=== PATIENT | female | born 1950 | race Caucasian/White ===

== ENCOUNTER → 2016-11-19 | Outpatient (CLI) | payer BC ==
[~2016-11-19] MED LIST: COZAAR100 MG PO; DESYREL 100MG100 MG PO; LAMICTAL25 MG PO; LOSARTAN POTASS25 MG PO; PERCOCET 325 MG1 TA2 PO; PRISTIQ 50 MG T50 MG PO; TRAZODONE50 MG PO; WELLBUTRIN SR150 M2 PO; WELLBUTRIN75 MG PO
== END ==
LOC: RAD 08:29
DX: R27.0 Ataxia, unspecified (principal)
CPT/HCPCS: A9579

== ENCOUNTER 2017-02-04 15:41 | Outpatient (RCR) | payer BC ==
[2016-04-04 23:10] VITALS: BP 158/76
== END 2017-03-13 15:00 | disposition home or self-care (01) ==
LOC: PT 15:41
DX: M25.572 Pain in left ankle and joints of left foot (principal)

== ENCOUNTER → 2017-04-09 | Outpatient (CLI) | payer BC ==
[2016-04-04 23:10] VITALS: BP 158/76
== END ==
LOC: RAD 16:39
DX: M25.552 Pain in left hip (principal); M25.551 Pain in right hip

== ENCOUNTER → 2017-09-03 | Outpatient (CLI) | payer BC ==
[2016-04-04 23:10] VITALS: BP 158/76
== END ==
LOC: MAMMO 09-02 13:02
DX: N63.11 Unspecified lump in the right breast, upper outer quadrant (principal)

== ENCOUNTER → 2018-03-25 | Outpatient (CLI) | payer MEDICARE, BC ==
[2016-04-04 23:10] VITALS: BP 158/76
== END ==
LOC: MAMMO 03-04 12:56
DX: N63.41 Unspecified lump in right breast, subareolar (principal)

== ENCOUNTER → 2018-11-02 | Outpatient (CLI) | payer MEDICARE, BC ==
[2016-04-04 23:10] VITALS: BP 158/76
== END ==
LOC: RAD 09:23
DX: I51.7 Cardiomegaly (principal); R05 Cough
CPT/HCPCS: Q9967

== ENCOUNTER → 2018-11-29 | Outpatient (CLI) | payer MEDICARE, BC ==
[2016-04-04 23:10] VITALS: BP 158/76
== END ==
LOC: VAS 11:15
DX: I51.89 Other ill-defined heart diseases (principal); I51.7 Cardiomegaly

== ENCOUNTER → 2018-12-09 | Outpatient (CLI) | payer MEDICARE, BC ==
[2016-04-04 23:10] VITALS: BP 158/76
== END ==
LOC: MAMMO 12:57
DX: N60.11 Diffuse cystic mastopathy of right breast (principal)

== ENCOUNTER 2019-05-24 21:01 | Emergency (ER) | payer MEDICARE, BC ==
[~2019-05-24 21:01] MED LIST changes: +AMLODIPINE BESYL5 MG PO; +OMEPRAZOLE40 MG PO; +SERTRALINE HYD100 MG PO
[2019-05-24] MEDS ORDERED: WELLBUTRIN XL150 M2 PO (21:15)
[2019-05-24] MEDS ORDERED: CARVEDILOL12.5 MG PO (21:16)
[2019-05-24] MEDS ORDERED: ATORVASTATIN CA80 MG PO (21:16)
[2019-05-24] MEDS ORDERED: ACETAMINOPHEN-O1 TAB PO (21:16)
[2019-05-24] MEDS ORDERED: GABAPENTIN100 MG PO (21:17)
[2019-05-24] MEDS ORDERED: SINGULAIR 110 MG/TAB PO (21:17)
[2019-05-24] MEDS ORDERED: NITROGLYCERIN0.4 M1 SL (21:17)
[2019-05-24] MEDS ORDERED: ASPIRIN E.C. 8181 MG PO (21:18)
[2019-05-24 22:11] VITALS: BP 150/82
== END 2019-05-24 22:16 | disposition home or self-care (01) ==
LOC: ED 21:01
DX: S52.502A Unspecified fracture of the lower end of left radius, initial encounter for closed fracture (principal); S52.602A Unspecified fracture of lower end of left ulna, initial encounter for closed fracture; S42.412A Displaced simple supracondylar fracture without intercondylar fracture of left humerus, initial encounter for closed fracture; H57.11 Ocular pain, right eye; F41.9 Anxiety disorder, unspecified; I25.10 Atherosclerotic heart disease of native coronary artery without angina pectoris; F32.9 Major depressive disorder, single episode, unspecified; Z95.5 Presence of coronary angioplasty implant and graft; Z77.098 Contact with and (suspected) exposure to other hazardous, chiefly nonmedicinal, chemicals; W09.8XXA Fall on or from other playground equipment, initial encounter; Y92.830 Public park as the place of occurrence of the external cause

== ENCOUNTER 2019-06-22 16:00 | Outpatient (RCR) | payer MEDICARE, BC ==
[2019-03-14 11:00] VITALS: BP 180/89
[~2019-06-22 16:00] MED LIST changes: +ACETAMINOPHEN-O1 TAB PO; +ASPIRIN E.C. 8181 MG PO; +ATORVASTATIN CA80 MG PO; +CARVEDILOL12.5 MG PO; +GABAPENTIN100 MG PO; +NITROGLYCERIN0.4 M1 SL; +SINGULAIR 110 MG/TAB PO; +WELLBUTRIN XL150 M2 PO
== END 2019-06-28 | disposition home or self-care (01) ==
LOC: CARDREHAB
DX: Z48.812 Encounter for surgical aftercare following surgery on the circulatory system (principal); Z95.1 Presence of aortocoronary bypass graft

== ENCOUNTER 2019-07-04 16:00 | Outpatient (RCR) | payer MEDICARE, BC ==
[2019-09-12] MEDS ORDERED: DULOXETINE60 MG PO (16:27)
[2019-09-12] MEDS ORDERED: CLOPIDOGREL75 M2 PO (16:27)
== END 2019-10-02 | disposition home or self-care (01) ==
LOC: CARDREHAB
DX: Z48.812 Encounter for surgical aftercare following surgery on the circulatory system (principal); Z95.5 Presence of coronary angioplasty implant and graft

== ENCOUNTER 2019-09-12 16:19 | Emergency (ER) | payer OTHER ==
[2019-09-12] MEDS ORDERED: DULOXETINE60 MG PO (16:27)
[2019-09-12] MEDS ORDERED: CLOPIDOGREL75 M2 PO (16:27)
[2019-09-12 16:54] VITALS: BP 144/91
== END 2019-09-12 16:53 | disposition home or self-care (01) ==
LOC: ED 16:19
DX: S01.81XA Laceration without foreign body of other part of head, initial encounter (principal); I10 Essential (primary) hypertension; Z95.5 Presence of coronary angioplasty implant and graft; Z79.82 Long term (current) use of aspirin; Z79.02 Long term (current) use of antithrombotics/antiplatelets; W20.8XXA Other cause of strike by thrown, projected or falling object, initial encounter; Y92.69 Other specified industrial and construction area as the place of occurrence of the external cause; Y99.0 Civilian activity done for income or pay

== ENCOUNTER 2019-10-30 18:06 | Emergency (ER) | payer MEDICARE, BC ==
[~2019-10-30] VITALS: Ht 165.1 cm; Wt 113.6 kg
[~2019-10-30 18:06] MED LIST changes: +CLOPIDOGREL75 M2 PO; +DULOXETINE60 MG PO
[2019-10-30 18:51] VITALS: BP 135/68
== END 2019-10-30 18:50 | disposition home or self-care (01) ==
LOC: ED 18:06
DX: S61.011A Laceration without foreign body of right thumb without damage to nail, initial encounter (principal); I25.10 Atherosclerotic heart disease of native coronary artery without angina pectoris; I10 Essential (primary) hypertension; Z23 Encounter for immunization; Z79.02 Long term (current) use of antithrombotics/antiplatelets; Z88.1 Allergy status to other antibiotic agents; W45.8XXA Other foreign body or object entering through skin, initial encounter; Y92.009 Unspecified place in unspecified non-institutional (private) residence as the place of occurrence of the external cause
CPT/HCPCS: 90715

== ENCOUNTER 2019-11-19 09:46 | Emergency (ER) | payer MEDICARE, BC ==
[2019-11-19] MEDS ORDERED: FLUOXETINE40 MG PO (10:05)
[2019-11-19 10:31] LABS: EOS # 0.2 (0.04-0.40); EOS % 3.2 % (1.0-5.0); HEMOGLOBIN 12.2 g/dL (12.5-16.0); LYMPH# 1.3 (1.50-4.00); MEAN CELL VOLUME 91 fl (78-100); MEAN CORPUSCULAR HEMOGLOBIN 28 pg (27-31); MEAN CORPUSCULAR HGB CONC 31 g/dL (33-37); MEAN PLATELET VOLUME 9.4 fl (7.4-10.4); MONO # 0.4 (0.20-0.80); PLATELET COUNT 183 K/mm3 (130-400); RED BLOOD COUNT 4.31 M/mm3 (4.10-5.30); RED CELL DISTRIBUTION WIDTH 14.6 % (11.5-14.5); WHITE BLOOD COUNT 5.9 K/mm3 (4.8-10.8)
[2019-11-19 10:59] LABS: D-DIMER 0.89 mg/L FEU (0.15-0.50)
[2019-11-19 11:00] LABS: ALBUMIN 3.6 g/dL (3.4-4.8); POTASSIUM 3.9 mmol/L (3.5-5.1)
[2019-11-19 11:01] LABS: CALCIUM 8.9 mg/dL (8.3-10.5)
[2019-11-19 11:03] LABS: TOTAL PROTEIN 6.6 g/dL (6.2-8.1)
[2019-11-19 11:04] LABS: TOTAL BILIRUBIN 0.5 mg/dL (0.2-1.2)
[2019-11-19 15:20] VITALS: BP 173/92
== END 2019-11-19 15:40 | disposition short-term general hospital (02) ==
LOC: ED 09:46
PROVIDERS: Family Medicine
DX: I20.0 Unstable angina (principal); I25.2 Old myocardial infarction; I10 Essential (primary) hypertension; E78.5 Hyperlipidemia, unspecified; K21.9 Gastro-esophageal reflux disease without esophagitis; Z79.02 Long term (current) use of antithrombotics/antiplatelets; Z79.82 Long term (current) use of aspirin; Z95.5 Presence of coronary angioplasty implant and graft
CPT/HCPCS: J1644; J2270

== ENCOUNTER 2020-03-20 10:29 | Emergency (ER) | payer MEDICARE, BC ==
[~2020-03-20] VITALS: Ht 165.1 cm; Wt 113.6 kg
[~2020-03-20 10:29] MED LIST changes: +PROZAC20 M1 PO
[2020-03-20 11:00] LABS: EOS # 0.2 (0.04-0.40); EOS % 4.1 % (1.0-5.0); HEMATOCRIT 38.7 % (37.0-47.0); HEMOGLOBIN 11.9 g/dL (12.5-16.0); LYMPH# 1.4 (1.50-4.00); MEAN CELL VOLUME 92 fl (78-100); MEAN CORPUSCULAR HEMOGLOBIN 28 pg (27-31); MEAN CORPUSCULAR HGB CONC 31 g/dL (33-37); MEAN PLATELET VOLUME 9.2 fl (7.4-10.4); MONO # 0.5 (0.20-0.80); NEU # 3.5 (1.40-6.50); PLATELET COUNT 173 K/mm3 (130-400); RED BLOOD COUNT 4.22 M/mm3 (4.10-5.30); RED CELL DISTRIBUTION WIDTH 15.1 % (11.5-14.5); WHITE BLOOD COUNT 5.6 K/mm3 (4.8-10.8)
[2020-03-20] MEDS ORDERED: PROAIR HFA0.09 MG/AC IH (11:09)
[2020-03-20 11:12] LABS: ALBUMIN 3.6 g/dL (3.4-4.8); POTASSIUM 4.2 mmol/L (3.5-5.1); SODIUM 143 mmol/L (136-145)
[2020-03-20] MEDS ORDERED: ZYRTEC10 M3 PO (11:12)
[2020-03-20] MEDS ORDERED: DESMOPRESSIN0.2 MG PO (11:13)
[2020-03-20 11:14] LABS: CALCIUM 8.9 mg/dL (8.3-10.5)
[2020-03-20] MEDS ORDERED: ISOSORBIDE30 MG PO (11:14)
[2020-03-20 11:15] LABS: GLUCOSE 107 mg/dL (65-105); TOTAL PROTEIN 6.5 g/dL (6.2-8.1)
[2020-03-20] MEDS ORDERED: ATIVAN1 M1 PO (11:15)
[2020-03-20 11:16] LABS: CARBON DIOXIDE 24 mmol/L (23-31)
[2020-03-20] MEDS ORDERED: PANTOPRAZOLE SO40 MG PO (11:17)
[2020-03-20] MEDS ORDERED: SYSTANE 0.3-0.415 ML OP (11:18)
[2020-03-20] MEDS ORDERED: SPIRIVA RESPIMAT4 GM IH (11:19)
[2020-03-20 11:20] LABS: AST-SGOT 32 U/L (5-34)
[2020-03-20] MEDS ORDERED: VALTREX 50500 MG/TAB PO (11:20)
[2020-03-20 11:21] LABS: ALT/SGPT 59 U/L (0-55)
[2020-03-20 11:27] LABS: CKMB ISOENZYME 1.2 ng/mL (0.0-3.5)
[2020-03-20 11:29] LABS: TROPONIN-I < 0.03 ng/mL (<0.030)
[2020-03-20 11:40] LABS: TOTAL BILIRUBIN 0.3 mg/dL (0.2-1.2)
[2020-03-20 15:29] VITALS: BP 134/75
== END 2020-03-20 15:30 | disposition home or self-care (01) ==
LOC: ED 10:29
PROVIDERS: Nurse Practitioner Family
DX: I25.10 Atherosclerotic heart disease of native coronary artery without angina pectoris (principal); K21.0 Gastro-esophageal reflux disease with esophagitis; I10 Essential (primary) hypertension; F41.9 Anxiety disorder, unspecified; F32.9 Major depressive disorder, single episode, unspecified; Z95.5 Presence of coronary angioplasty implant and graft; Z88.2 Allergy status to sulfonamides; Z98.51 Tubal ligation status; Z79.82 Long term (current) use of aspirin
CPT/HCPCS: J7030

== ENCOUNTER → 2020-04-11 | Outpatient (CLI) | payer MEDICARE, BC ==
[2020-03-20 15:29] VITALS: BP 134/75
[~2020-04-11] MED LIST changes: +ATIVAN1 M1 PO; +DESMOPRESSIN0.2 MG PO; +ISOSORBIDE30 MG PO; +PANTOPRAZOLE SO40 MG PO; +PROAIR HFA0.09 MG/AC IH; +SPIRIVA RESPIMAT4 GM IH; +SYSTANE 0.3-0.415 ML OP; +VALTREX 50500 MG/TAB PO; +ZYRTEC10 M3 PO
== END ==
LOC: MAMMO 09:59
DX: Z12.31 Encounter for screening mammogram for malignant neoplasm of breast (principal)

== ENCOUNTER → 2020-04-11 | Outpatient (CLI) | payer MEDICARE, BC ==
[2020-03-20 15:29] VITALS: BP 134/75
== END ==
LOC: RAD 09:56 → MAMMO 10:45
DX: M81.0 Age-related osteoporosis without current pathological fracture (principal); Z78.0 Asymptomatic menopausal state

== ENCOUNTER → 2020-08-23 | Outpatient (CLI) | payer MEDICARE, BC | LOC: VAS 16:16 → RAD 16:30 | DX: I07.1 Rheumatic tricuspid insufficiency (principal) ==

== ENCOUNTER 2020-08-25 21:09 | Emergency (ER) | payer MEDICARE, BC ==
[2020-08-25 22:31] LABS: EOS # 0.2 (0.04-0.40); EOS % 3.7 % (1.0-5.0); HEMATOCRIT 42.1 % (37.0-47.0); HEMOGLOBIN 13.1 g/dL (12.5-16.0); LYMPH# 1.9 (1.50-4.00); MEAN CELL VOLUME 92 fl (78-100); MEAN CORPUSCULAR HEMOGLOBIN 29 pg (27-31); MEAN CORPUSCULAR HGB CONC 31 g/dL (33-37); MEAN PLATELET VOLUME 9.4 fl (7.4-10.4); MONO # 0.6 (0.20-0.80); NEU # 3.7 (1.40-6.50); PLATELET COUNT 176 K/mm3 (130-400); RED BLOOD COUNT 4.59 M/mm3 (4.10-5.30); WHITE BLOOD COUNT 6.5 K/mm3 (4.8-10.8)
[2020-08-25 22:37] LABS: URINE APPEARANCE CLEAR; URINE COLOR YELLOW
[2020-08-25 22:38] LABS: URINE BILIRUBIN NEGATIVE (NEGATIVE); URINE BLOOD TRACE (NEGATIVE); URINE GLUCOSE NEGATIVE (NEGATIVE); URINE KETONE NEGATIVE (NEGATIVE); URINE LEUKOCYTE ESTERASE NEGATIVE (NEGATIVE); URINE MUCUS PRESENT (NOT PRESENT); URINE NITRATE NEGATIVE (NEGATIVE); URINE PROTEIN(semi-quant) TRACE mg/dL (NEGATIVE); URINE UROBILINOGEN NORMAL (NORMAL)
[2020-08-25 22:39] LABS: ALBUMIN 3.7 g/dL (3.4-4.8); POTASSIUM 3.9 mmol/L (3.5-5.1); SODIUM 142 mmol/L (136-145)
[2020-08-25 22:41] LABS: CALCIUM 8.8 mg/dL (8.3-10.5)
[2020-08-25 22:42] LABS: GLUCOSE 118 mg/dL (65-105)
[2020-08-25 22:43] LABS: CARBON DIOXIDE 25 mmol/L (23-31)
[2020-08-25 22:44] LABS: TOTAL BILIRUBIN 0.2 mg/dL (0.2-1.2)
[2020-08-25 22:47] LABS: AST-SGOT 64 U/L (5-34)
[2020-08-25 22:48] LABS: ALT/SGPT 122 U/L (0-55)
[2020-08-25 22:55] LABS: TROPONIN-I < 0.03 ng/mL (<0.030)
[2020-08-26 01:08] VITALS: BP 161/75
== END 2020-08-26 01:08 | disposition home or self-care (01) ==
LOC: ED 21:09
PROVIDERS: Family Medicine
DX: R53.83 Other fatigue (principal); R06.00 Dyspnea, unspecified; I10 Essential (primary) hypertension; I25.10 Atherosclerotic heart disease of native coronary artery without angina pectoris; R82.81 Pyuria; R74.01 Elevation of levels of liver transaminase levels; I25.2 Old myocardial infarction; J45.909 Unspecified asthma, uncomplicated; E78.5 Hyperlipidemia, unspecified; Z20.828 Contact with and (suspected) exposure to other viral communicable diseases; Z95.5 Presence of coronary angioplasty implant and graft; Z79.84 Long term (current) use of oral hypoglycemic drugs; Z79.82 Long term (current) use of aspirin; Z79.01 Long term (current) use of anticoagulants; Z79.02 Long term (current) use of antithrombotics/antiplatelets
CPT/HCPCS: Q9967

== ENCOUNTER → 2020-08-28 | Outpatient (CLI) | payer MEDICARE, BC ==
[2020-08-26 01:08] VITALS: BP 161/75
== END ==
LOC: RAD 07:25
DX: R74.8 Abnormal levels of other serum enzymes (principal)

== ENCOUNTER → 2021-03-27 | Outpatient (CLI) | payer MEDICARE, BC | LOC: RAD 10:58 | DX: R94.5 Abnormal results of liver function studies (principal); R74.8 Abnormal levels of other serum enzymes ==

== ENCOUNTER 2021-08-05 07:43 | Outpatient (RCR) | payer MEDICARE, BC | END 2021-08-15 13:45 | LOC: OPPGERO 07:43 | DX: F33.2 Major depressive disorder, recurrent severe without psychotic features (principal); I10 Essential (primary) hypertension; F41.1 Generalized anxiety disorder; K21.9 Gastro-esophageal reflux disease without esophagitis; Z83.3 Family history of diabetes mellitus; Z82.49 Family history of ischemic heart disease and other diseases of the circulatory system ==

== ENCOUNTER 2021-08-16 08:25 | Outpatient (RCR) | payer MEDICARE, BC | END 2021-09-15 17:57 | disposition home or self-care (01) | LOC: OPPGERO 08:25 | DX: F33.2 Major depressive disorder, recurrent severe without psychotic features (principal); F41.1 Generalized anxiety disorder; Z83.3 Family history of diabetes mellitus; Z82.49 Family history of ischemic heart disease and other diseases of the circulatory system; K21.9 Gastro-esophageal reflux disease without esophagitis; M79.7 Fibromyalgia; I10 Essential (primary) hypertension; I25.2 Old myocardial infarction; Z98.890 Other specified postprocedural states ==

== ENCOUNTER 2021-09-16 08:53 | Outpatient (RCR) | payer MEDICARE, BC | END 2021-10-15 16:31 | LOC: OPPGERO 08:53 | DX: F32.9 Major depressive disorder, single episode, unspecified (principal); F41.9 Anxiety disorder, unspecified ==

== ENCOUNTER 2021-10-16 15:22 | Outpatient (RCR) | payer MEDICARE, BC | END 2021-11-14 12:35 | disposition home or self-care (01) | LOC: OPPGERO 15:22 | DX: F41.9 Anxiety disorder, unspecified (principal); F33.2 Major depressive disorder, recurrent severe without psychotic features; M79.7 Fibromyalgia; K21.9 Gastro-esophageal reflux disease without esophagitis; I10 Essential (primary) hypertension; I25.2 Old myocardial infarction; M19.90 Unspecified osteoarthritis, unspecified site; Z83.3 Family history of diabetes mellitus ==

== ENCOUNTER 2021-11-18 07:44 | Outpatient (RCR) | payer MEDICARE, BC | END 2021-12-16 11:56 | disposition still patient (30) | LOC: OPPGERO 07:44 | DX: F33.2 Major depressive disorder, recurrent severe without psychotic features (principal); F41.1 Generalized anxiety disorder; I10 Essential (primary) hypertension; Z98.890 Other specified postprocedural states; Z79.899 Other long term (current) drug therapy; Z86.73 Personal history of transient ischemic attack (TIA), and cerebral infarction without residual deficits ==

== ENCOUNTER 2022-05-10 14:26 | Emergency (ER) | payer MEDICARE, BC ==
[~2022-05-10] VITALS: Ht 162.6 cm; Wt 100.9 kg
[2022-05-10] MEDS ORDERED: PRISTIQ ER25 MG PO (14:53)
[2022-05-10] MEDS ORDERED: DESVENLAFAXINE100 M3 PO (14:56)
[2022-05-10] MEDS ORDERED: OLANZAPINE5 M3 PO (14:56)
[2022-05-10 15:31] VITALS: BP 123/82
== END 2022-05-10 15:33 | disposition home or self-care (01) ==
LOC: ED 14:26
DX: M79.81 Nontraumatic hematoma of soft tissue (principal); Z90.49 Acquired absence of other specified parts of digestive tract

== ENCOUNTER 2022-05-12 15:27 | Emergency (ER) | payer MEDICARE, BC ==
[~2022-05-12] VITALS: Ht 162.6 cm; Wt 100.9 kg
[~2022-05-12 15:27] MED LIST changes: +DESVENLAFAXINE100 M3 PO; +OLANZAPINE5 M3 PO; +PRISTIQ ER25 MG PO
[2022-05-12] MEDS ORDERED: ESCITALOPRAM5 MG PO (15:50)
[2022-05-12] MEDS ORDERED: PERCOCET 325 MG1 TA2 PO (15:50)
[2022-05-12] MEDS ORDERED: VALACYCLOVIR500 MG PO (15:53)
[2022-05-12] MEDS ORDERED: FAMOTIDINE40 M1 PO (15:54)
[2022-05-12] MEDS ORDERED: WELLBUTRIN XL300 M1 PO (15:55)
[2022-05-12] MEDS ORDERED: LAMOTRIGINE100 M3 PO (15:56)
[2022-05-12] MEDS ORDERED: NORVASC 10MG10 MG PO (15:56)
[2022-05-12] MEDS ORDERED: ROSUVASTATIN CA20 MG PO (15:57)
[2022-05-12] MEDS ORDERED: FLUOROMETHOLONE5 M1 OP (15:57)
[2022-05-12 16:15] LABS: BASO # 0.02 K/mm3 (0.02-0.10); EOS # 0.19 K/mm3 (0.04-0.40); EOS % 2.7 % (1.0-5.0); HEMATOCRIT 42.8 % (37.0-47.0); HEMOGLOBIN 13.6 g/dL (12.5-16.0); LYMPH# 1.76 K/mm3 (1.50-4.00); MEAN CELL VOLUME 94 fl (78-100); MEAN CORPUSCULAR HEMOGLOBIN 30 pg (27-31); MEAN CORPUSCULAR HGB CONC 32 g/dL (33-37); MONO # 0.63 K/mm3 (0.20-0.80); NEU # 4.34 K/mm3 (1.40-6.50); PLATELET COUNT 350 K/mm3 (130-400); RED BLOOD COUNT 4.55 M/mm3 (4.10-5.30)
[2022-05-12 16:35] LABS: MEAN PLATELET VOLUME 9.6 fl (7.4-10.4)
[2022-05-12 16:55] LABS: ALBUMIN 3.6 g/dL (3.4-4.8); POTASSIUM 3.9 mmol/L (3.5-5.1); SODIUM 142 mmol/L (136-145)
[2022-05-12 16:56] LABS: CALCIUM 9.1 mg/dL (8.3-10.5)
[2022-05-12 16:57] LABS: GLUCOSE 99 mg/dL (65-105)
[2022-05-12 16:58] LABS: CARBON DIOXIDE 24 mmol/L (23-31)
[2022-05-12 16:59] LABS: TOTAL BILIRUBIN 0.3 mg/dL (0.2-1.2)
[2022-05-12 17:03] LABS: AST-SGOT 12 U/L (5-34)
[2022-05-12 17:04] LABS: ALT/SGPT 17 U/L (0-55)
[2022-05-12 17:15] LABS: TROPONIN-I < 0.030 ng/mL (<0.030)
[2022-05-12 17:42] LABS: URINE WBC 0 /hpf (0-3)
[2022-05-12 18:08] VITALS: BP 126/68
[2022-05-12 18:23] LABS: URINE APPEARANCE CLEAR; URINE COLOR LT YELLOW
[2022-05-12 18:24] LABS: PH-URINE 8.5 (5.0 - 8.0); URINE GLUCOSE NEGATIVE (NEGATIVE); URINE KETONE NEGATIVE (NEGATIVE); URINE PROTEIN(semi-quant) NEGATIVE (NEGATIVE)
[2022-05-12 18:25] LABS: URINE BILIRUBIN NEGATIVE (NEGATIVE); URINE BLOOD TRACE (NEGATIVE); URINE LEUKOCYTE ESTERASE NEGATIVE (NEGATIVE); URINE NITRATE NEGATIVE (NEGATIVE); URINE UROBILINOGEN NORMAL (NORMAL)
== END 2022-05-12 18:08 | disposition home or self-care (01) ==
LOC: ED 15:27
PROVIDERS: Nurse Practitioner
DX: R00.2 Palpitations (principal); Z95.5 Presence of coronary angioplasty implant and graft

== ENCOUNTER → 2023-01-19 | Outpatient (CLI) | payer MEDICARE, BC ==
[~2023-01-19] MED LIST changes: +ESCITALOPRAM5 MG PO; +FAMOTIDINE40 M1 PO; +FLUOROMETHOLONE5 M1 OP; +LAMOTRIGINE100 M3 PO; +NORVASC 10MG10 MG PO; +ROSUVASTATIN CA20 MG PO; +VALACYCLOVIR500 MG PO; +WELLBUTRIN XL300 M1 PO
== END ==
LOC: RAD 14:45
DX: Z01.818 Encounter for other preprocedural examination (principal)

== ENCOUNTER 2023-02-04 14:56 | Outpatient (RCR) | payer MEDICARE, BC | END 2023-02-13 | disposition home or self-care (01) | LOC: PT | DX: M16.11 Unilateral primary osteoarthritis, right hip (principal) ==

== ENCOUNTER → 2024-01-06 | Outpatient (CLI) | payer MEDICARE, BC ==
[~2024-01-06] MED LIST changes: +Iohexol 300 - 100 ML VIAL IV ONE
== END ==
LOC: RAD 08:54
DX: Z12.31 Encounter for screening mammogram for malignant neoplasm of breast (principal); R63.0 Anorexia; R10.13 Epigastric pain; M81.0 Age-related osteoporosis without current pathological fracture
CPT/HCPCS: Q9967

== ENCOUNTER 2024-01-29 18:20 | Emergency (ER) | payer MEDICARE, BC ==
[~2024-01-29] VITALS: Ht 152.4 cm; Wt 105.5 kg
[~2024-01-29 18:20] MED LIST changes: -Iohexol 300 - 100 ML VIAL IV ONE
[2024-01-29 20:05] VITALS: BP 142/74
== END 2024-01-29 20:05 | disposition home or self-care (01) ==
LOC: ED 18:20
DX: S00.83XA Contusion of other part of head, initial encounter (principal); W10.8XXA Fall (on) (from) other stairs and steps, initial encounter; Y93.01 Activity, walking, marching and hiking

== ENCOUNTER → 2024-03-22 | Day surgery (SDC) | payer MEDICARE, BC ==
[~2024-03-22] MED LIST changes: +Iohexol 300 - 10 ML VIAL IV ONE; +methylPREDNISolone acetate 80 MG/ML VIAL IJ ONE
== END | disposition home or self-care (01) ==
LOC: MSO 03-17 16:01
DX: M46.1 Sacroiliitis, not elsewhere classified (principal); M47.896 Other spondylosis, lumbar region; M54.16 Radiculopathy, lumbar region; M96.1 Postlaminectomy syndrome, not elsewhere classified
CPT/HCPCS: J0665; J1010; Q9967

== ENCOUNTER 2024-06-18 18:59 | Emergency (ER) | payer MEDICARE, BC ==
[~2024-06-18] VITALS: Ht 165.1 cm; Wt 109.1 kg
[~2024-06-18 18:59] MED LIST changes: -Iohexol 300 - 10 ML VIAL IV ONE; -methylPREDNISolone acetate 80 MG/ML VIAL IJ ONE
[2024-06-18 19:53] LABS: BASO # 0.01 K/mm3 (0.02-0.10); EOS # 0.21 K/mm3 (0.04-0.40); EOS % 2.4 % (1.0-5.0); HEMATOCRIT 39.7 % (37.0-47.0); HEMOGLOBIN 12.5 g/dL (12.5-16.0); LYMPH# 1.66 K/mm3 (1.50-4.00); MEAN CELL VOLUME 94 fl (78-100); MEAN CORPUSCULAR HEMOGLOBIN 30 pg (27-31); MEAN CORPUSCULAR HGB CONC 32 g/dL (33-37); MEAN PLATELET VOLUME 9.4 fl (7.4-10.4); MONO # 0.73 K/mm3 (0.20-0.80); NEU # 5.95 K/mm3 (1.40-6.50); PLATELET COUNT 181 K/mm3 (130-400); RED BLOOD COUNT 4.24 M/mm3 (4.10-5.30); RED CELL DISTRIBUTION WIDTH 14.7 % (11.5-14.5); WHITE BLOOD COUNT 8.6 K/mm3 (4.8-10.8)
[2024-06-18 20:00] LABS: ALBUMIN 3.9 g/dL (3.4-4.8)
[2024-06-18 20:01] LABS: SODIUM 142 mmol/L (136-145)
[2024-06-18 20:02] LABS: CALCIUM 9.3 mg/dL (8.3-10.5)
[2024-06-18 20:03] LABS: GLUCOSE 111 mg/dL (65-105); TOTAL PROTEIN 6.5 g/dL (6.2-8.1)
[2024-06-18 20:04] LABS: CARBON DIOXIDE 25 mmol/L (23-31)
[2024-06-18 20:05] LABS: TOTAL BILIRUBIN 0.4 mg/dL (0.2-1.2)
[2024-06-18 20:08] LABS: AST-SGOT 19 U/L (5-34)
[2024-06-18 20:09] LABS: ALT/SGPT 13 U/L (0-55)
[2024-06-18 20:18] LABS: TROPONIN-I < 0.030 ng/mL (0.00-0.033)
[2024-06-19 00:07] VITALS: BP 136/67
== END 2024-06-19 00:08 | disposition home or self-care (01) ==
LOC: ED 18:59
PROVIDERS: Family Medicine
DX: I25.10 Atherosclerotic heart disease of native coronary artery without angina pectoris (principal); E66.01 Morbid (severe) obesity due to excess calories; Z68.41 Body mass index [BMI] 40.0-44.9, adult

== ENCOUNTER → 2024-07-29 | Outpatient (CLI) | payer MEDICARE, BC ==
[~2024-07-29] VITALS: Ht 165.1 cm; Wt 110.2 kg
[~2024-07-29] MED LIST changes: +Regadenoson 0.08 MG/ML 5 ML VIAL IV SCH
== END ==
LOC: CARDREHAB 08:55
DX: R07.9 Chest pain, unspecified (principal)
CPT/HCPCS: A9500; J2785

== ENCOUNTER 2024-11-14 19:00 | Emergency (ER) | payer MEDICARE, BC ==
[~2024-11-14] VITALS: Ht 165.1 cm; Wt 110.5 kg
[~2024-11-14 19:00] MED LIST changes: -Regadenoson 0.08 MG/ML 5 ML VIAL IV SCH
[2024-11-14 19:46] LABS: BASO # 0.01 K/mm3 (0.02-0.10); EOS % 4.1 % (1.0-5.0); HEMATOCRIT 39.4 % (37.0-47.0); HEMOGLOBIN 12.4 g/dL (12.5-16.0); LYMPH# 2.09 K/mm3 (1.50-4.00); MEAN CELL VOLUME 93 fl (78-100); MEAN CORPUSCULAR HEMOGLOBIN 29 pg (27-31); MEAN CORPUSCULAR HGB CONC 32 g/dL (33-37); MEAN PLATELET VOLUME 9.2 fl (7.4-10.4); MONO # 0.66 K/mm3 (0.20-0.80); NEU # 4.22 K/mm3 (1.40-6.50); PLATELET COUNT 197 K/mm3 (130-400); RED BLOOD COUNT 4.22 M/mm3 (4.10-5.30); RED CELL DISTRIBUTION WIDTH 15.3 % (11.5-14.5); WHITE BLOOD COUNT 7.3 K/mm3 (4.8-10.8)
[2024-11-14 19:53] LABS: SODIUM 142 mmol/L (136-145)
[2024-11-14 19:56] LABS: GLUCOSE 115 mg/dL (65-105); TOTAL PROTEIN 6.7 g/dL (6.2-8.1)
[2024-11-14 19:57] LABS: CARBON DIOXIDE 24 mmol/L (23-31)
[2024-11-14 19:58] LABS: TOTAL BILIRUBIN 0.3 mg/dL (0.2-1.2)
[2024-11-14 19:59] LABS: ALCOHOL IN-HOUSE < 10 mg/dL (<10)
[2024-11-14 20:01] LABS: AST-SGOT 12 U/L (5-34)
[2024-11-14 20:03] LABS: ACETAMINOPHEN 19 ug/mL; ALT/SGPT 9 U/L (0-55)
[2024-11-14 23:20] VITALS: BP 110/64
== END 2024-11-14 23:21 | disposition home or self-care (01) ==
LOC: ED 19:00
PROVIDERS: Nurse Practitioner Family
DX: T40.2X2A Poisoning by other opioids, intentional self-harm, initial encounter (principal); Z95.5 Presence of coronary angioplasty implant and graft